=== PATIENT | female | born 1930 ===

== ENCOUNTER 2016-11-04 09:02 | Day surgery (SDC) | payer MEDICARE, OTHER ==
[~2016-11-04] VITALS: Ht 157.5 cm; Wt 68.0 kg
[~2016-11-04 09:02] MED LIST: B COMPLEX WITH1 EACH PO; CALCIUM500 MG PO; CENTRUM SILVER1 EAC5 PO; COUMADIN3 MG; COZAAR25 MG PO; FLAX SEED OIL1000 MG PO; MAGNESIUM30 MG; METOPROLOL ER-1 EACH PO; OCUVITE EYE +1 EACH PO; VITAMIN D400 UNIT PO
[2016-11-04] MEDS ORDERED: LEVO-T100 MCG PO (09:53)
== END 2016-11-04 11:29 | disposition home or self-care (01) ==
LOC: OPS 09:02 → DS 09:02 → EDBD 09:02 → OPS 11:00 → DS 11:00 → OPS 11:29
PROVIDERS: Ophthalmology
PROC: 08R Eye, Replacement (ICD-10-PCS; 2016-11-04)
PROC: 08T1XZZ Resection of Left Eye, External Approach (ICD-10-PCS; principal; 2016-11-04 11:00)
DX: H18.452 Nodular corneal degeneration, left eye (principal); H11.032 Double pterygium of left eye; H11.022 Central pterygium of left eye; Z87.891 Personal history of nicotine dependence; I10 Essential (primary) hypertension; Z86.73 Personal history of transient ischemic attack (TIA), and cerebral infarction without residual deficits; M19.90 Unspecified osteoarthritis, unspecified site; Z95.5 Presence of coronary angioplasty implant and graft; Z90.710 Acquired absence of both cervix and uterus; Z98.890 Other specified postprocedural states; Z88.8 Allergy status to other drugs, medicaments and biological substances; Z79.899 Other long term (current) drug therapy
CPT/HCPCS: 00140; J2250; J2704